=== PATIENT | female | born 1955 ===

== ENCOUNTER 2020-03-14 07:00 | Day surgery (SDC) | payer OTHER ==
[~2020-03-14] VITALS: Ht 157.5 cm; Wt 56.2 kg
[~2020-03-14 07:00] MED LIST: FLONASE NASAL; FLOVENT HFA10.6 GM IH; SIMVASTA PO; TOPROL XL25 M1 PO
[2020-03-14] MEDS ORDERED: SIMVASTATIN20 MG PO (08:55)
== END 2020-03-15 08:00 | disposition home or self-care (01) ==
LOC: SURH 07:00 → CIR.AMB 07:00 → SURH 11:00 → O/R 11:00 → EDSTATUS 11:00 → OB/GYN 13:53 → O/R 13:53 → CIR.AMB 03-15 08:00 → OB/GYN 03-15 10:42
PROVIDERS: ATTEND Obstetrics & Gynecology Gynecology
DX: N81.2 Incomplete uterovaginal prolapse (principal)